=== PATIENT | male | born 1950 | race Caucasian/White ===

== ENCOUNTER → 2023-07-31 | Outpatient (CLI) | payer MEDICARE ==
[~2023-07-31] MED LIST: ADULT LOW DOSE81 MG PO; APLISOL5 TUB UNIT IC; BRILINTA90 M1 PO; BUPROPION HCL150 M3 PO; DULCOLAX STOOL100 M1 PO; DULOXETINE HCL60 MG PO; FINASTERIDE1 M1 PO; FLOMAX0.4 MG PO; FOLIC ACID-VIT1 EACH PO; GOOD NEIGHBOR500 M2 PO; HUMALOG100 UNIT/1 SC; HUMULIN R100 UNIT/1 SC; HYDROCODONE-AC1 EAC2 PO; INSULIN GL100 UNIT/5 SC; JOCK ITCH14.2 GM T; KLOR-CON M1010 ME1 PO; LASIX20 MG PO; LYRICA75 M1 PO; MECLIZINE HCL25 M2 PO; MECLIZINE HYD12.5 MG PO; MELATONIN PO; METOPROLOL SUCC25 M2 PO; MILK OF MA400 MG/5 M PO; NATURE'S BLEND F1 MG PO; PROVIGIL200 MG PO; ROSUVASTATIN CA10 MG PO; TOPROL XL50 M1 PO; VALACYCLOVIR500 M1 PO; VICTOZA 2-0.6 MG/0.1 SC
== END | disposition home or self-care (01) ==
LOC: WOUNDCARE 02-03 01:25 → RESCLI 01:26
PROVIDERS: ATTEND Internal Medicine
DX: E11.9 Type 2 diabetes mellitus without complications (principal); F41.9 Anxiety disorder, unspecified; S72.009A Fracture of unspecified part of neck of unspecified femur, initial encounter for closed fracture; N40.0 Benign prostatic hyperplasia without lower urinary tract symptoms; B00.9 Herpesviral infection, unspecified; G47.30 Sleep apnea, unspecified; G62.9 Polyneuropathy, unspecified; G47.419 Narcolepsy without cataplexy; E53.8 Deficiency of other specified B group vitamins; Z98.890 Other specified postprocedural states; Z79.82 Long term (current) use of aspirin; Z79.899 Other long term (current) drug therapy; Z87.891 Personal history of nicotine dependence; X58.XXXA Exposure to other specified factors, initial encounter; Y93.89 Activity, other specified; Y92.89 Other specified places as the place of occurrence of the external cause; Y99.8 Other external cause status